=== PATIENT | male | born 1995 | race Caucasian/White ===

== ENCOUNTER 2021-03-28 17:42 | Emergency (ER) | payer BC, SELFPAY ==
[2021-03-28 17:53] VITALS: BP 148/88; PULSE 135; RESP 18; TEMP 38; O2SAT 100
--- NOTE | 2021-03-28 18:20 | ED.URI ---
HPI - URI/Sore Throat General Chief Complaint: Upper Respiratory Infection Stated Complaint: aches in head and body Time Seen by Provider: 03/28/21 18:12 Source: patient and RN notes reviewed Mode of arrival: ambulatory Limitations: no limitations History of Present Illness HPI Narrative: Patient presents today complaining of body aches, chills, fever up to 101.5, headache since yesterday afternoon/evening. Denies any additional symptoms to include cough, sore throat, congestion, rhinorrhea. He has tried no medication for symptoms prior to arrival. MD elicited complaint: fever Related Data Home Medications Medication Instructions Recorded Confirmed No Home Medications 03/28/21 03/28/21 Allergies Allergy/AdvReac Type Severity Reaction Status Date / Time erythromycin base Allergy Unknown Verified 03/28/21 17:54 Review of Systems Review of Systems: CONSTITUTIONAL: Denies chills, or sweats.+ Body aches, chills, fever EYES: Denies visual changes, redness, or discharge. ENT: Denies rhinorrhea, congestion, sore throat, or otalgia. CARDIOVASCULAR: Denies chest pain, palpitations, or edema. RESPIRATORY: Denies cough or dyspnea. GASTROINTESTINAL: Denies abdominal pain, nausea, vomiting, or diarrhea. GENITOURINARY: Denies dysuria or hematuria. SKIN: Denies rash, itching, or wounds. MUSCULOSKELETAL: Denies back pain, joint pain, or myalgia. NEUROLOGIC: Denies numbness, tingling, or weakness.+ Headache PSYCH: Denies depression or anxiety. PMFSH Comments At time of signature, I have reviewed and agree with nursing past medical, surgical, social and family history unless otherwise noted. Please see nursing chart for further information. There is no relevant family history pertinent to the presenting complaint Exam Narrative: GENERAL: Well-appearing, well-nourished, and in no acute distress. HEAD: Normocephalic, atraumatic. EYES: EOMI. No redness or drainage. Conjunctivae normal. ENT: Mucous membranes pink and moist. Nares clear. No rhinorrhea. TMs normal bilaterally. Throat normal. Uvula midline. NECK: Normal AROM. Supple. No lymphadenopathy. CHEST: No respiratory distress. Clear to auscultation. HEART: Regular rate and rhythm. No murmur appreciated. Normal peripheral pulses. EXTREMITIES: Normal range of motion. No edema. SKIN: Warm, dry, no rash. Capillary refill normal. Normal skin turgor. NEURO: No focal deficits. Alert and oriented x3. Gait steady. PSYCH: Normal affect. No signs of depression or anxiety. Course Course Level of Care: Express Care Visit Vital Signs Vital signs: Vital Signs Temperature 100.4 F H 03/28/21 17:53 Pulse Rate 135 H 03/28/21 17:53 Respiratory Rate 18 03/28/21 17:53 Blood Pressure 148/88 H 03/28/21 17:53 Pulse Oximetry 100 03/28/21 17:53 Temperature 100.4 F H 03/28/21 17:53 Pulse Rate 135 H 03/28/21 17:53 Respiratory Rate 18 03/28/21 17:53 Blood Pressure 148/88 H 03/28/21 17:53 Pulse Oximetry 100 03/28/21 17:53 Reviewed. Pt has been instructed to follow up with his PCP regarding his elevated blood pressure today. MDM - URI/Sore Throat Differential Diagnosis Differential diagnosis: Likely upper respiratory infection, influenza and other (COVID-19) Lab Data Attestation: I reviewed the patient's lab results. Lab results narrative: Rapid COVID-19 test negative Labs: Influenza A Screen Negative Reference Range: Negative Influenza B Screen Negative Reference Range: Negative Critical Care Time Critical Care Time Critical Care Time: No Discharge Plan Discharge Clinical Impression: Acute febrile illness Patient Disposition: Home, Self-Care Condition: Stable Instructions: Fever in Adults (ED) Additional Instructions: Your COVID-19 and influenza swabs are both negative today. It is recommended that you r
== END 2021-03-28 18:31 | disposition home or self-care (01) ==
PROVIDERS: Emergency Provider Nurse Practitioner
DX: R50.9 Fever, unspecified (principal); Z20.822 Contact with and (suspected) exposure to COVID-19
CPT/HCPCS: 87426; 87804; 99213; C9803; G0463